=== PATIENT | female | born 1950 | race American Indian/Alaskan Native ===

== ENCOUNTER 2017-01-20 12:10 | Emergency (ER) | payer MEDICARE ==
[2017-01-20 16:14] LABS: Hematocrit 32.5 % (30.3-42.9); Hemoglobin 10.1 gm/dl (10.1-14.3); Mean Corpuscular HGB Conc 31 % (30-34); Mean Corpuscular Hemoglobin 26 pg (28-32); Mean Corpuscular Volume 83 fl (79-97); Red Cell Distribution Width 18.3 % (13.2-15.2); White Blood Count 3.4 K/mm3 (4.5-11.0)
[2017-01-20 16:19] LABS: INR 1.33 (0.87-1.13)
[2017-01-20 16:22] LABS: Alanine Aminotransferase 9 units/L (7-56); Albumin 4.2 g/dL (3.9-5); Albumin/Globulin Ratio 1.4 %; Alkaline Phosphatase 85 units/L (35-129); Anion Gap 23 mmol/L; Blood Urea Nitrogen 12 mg/dL (7-17); Calcium 9.3 mg/dL (8.4-10.2); Carbon Dioxide 29 mmol/L (22-30); Chloride 101.4 mmol/L (98-107); Glucose 77 mg/dL (65-100); Potassium 3.9 mmol/L (3.6-5.0); Sodium 149 mmol/L (137-145); Total Protein 7.1 g/dL (6.3-8.2)
[2017-01-20 16:25] LABS: Partial Thromboplastin Time 90.6 Sec. (24.2-36.6)
[2017-01-20 16:33] LABS: Bilirubin,Direct < 0.2 mg/dL (0-0.2); Bilirubin,Indirect 0.4 mg/dL
[2017-01-20 17:19] LABS: Anisocytosis 1+; Basophils % (Manual) 0 % (0.0-1.8); Blastocytes % (Manual) 0 %; Ovalocytes 1+
[2017-01-20 17:21] LABS: Basophilic Stippling Few; Hypochromasia 1+; Large Platelets Few; Poikilocytosis Few; Polychromasia Few
[2017-01-20 17:22] LABS: Diff Status Complete; Platelet Count 87 K/mm3 (140-440); Platelet Estimate Appears Decreased
--- NOTE | 2017-01-20 17:48 | Emergency Department Report ---
ED General Adult HPI - General Chief complaint: Medical Clearance Stated complaint: UNABLE TO STOP BLEEDING Time Seen by Provider: 01/20/17 13:28 Source: patient Mode of arrival: Stretcher Limitations: No Limitations - History of Present Illness Initial comments: The patient had bleeding from the AV fistula right of her left arm at dialysis today. EMS states that dialysis was unable to stop bleeding. They placed a dressing and a cling and the patient was transported to the emergency department. Apparently the bleeding stopped and this was effective. Patient is currently taking Eloquis and aspirin. She states he's not had any excessive bleeding during dialysis prior. She's been on dialysis for 8 years. -: Sudden Severity scale (0 -10): 0 - Related Data Previous Rx's Medication Instructions Recorded Last Taken Type ALBUTEROL Inhaler [ProAir HFA 2 puff IH QID PRN #1 inhalation 08/05/14 Unknown Rx Inhaler] Apixaban [Eliquis] 5 mg PO BID #60 tablet 01/20/17 Unknown Rx Allergies Allergy/AdvReac Type Severity Reaction Status Date / Time Penicillins Allergy shortness Verified 08/05/14 10:58 of breath and wheezing povidone-iodine Allergy itch and Verified 08/05/14 10:58 [From Betadine] rash soap [From Betadine] Allergy itch and Verified 08/05/14 10:58 rash ED Review of Systems ROS: Stated complaint: UNABLE TO STOP BLEEDING Other details as noted in HPI Constitutional: denies: chills, fever Eyes: denies: eye pain, eye discharge, vision change ENT: denies: ear pain, throat pain Respiratory: denies: cough, shortness of breath, wheezing Cardiovascular: denies: chest pain, palpitations Endocrine: no symptoms reported Gastrointestinal: denies: abdominal pain, nausea, diarrhea Genitourinary: denies: urgency, dysuria, discharge Musculoskeletal: denies: back pain, joint swelling, arthralgia Skin: denies: rash, lesions Neurological: denies: headache, weakness, paresthesias Psychiatric: denies: anxiety, depression Hematological/Lymphatic: as per HPI ED Past Medical Hx - Past Medical History Hx Hypertension: Yes Hx GERD: Yes Hx Renal Disease: Yes Additional medical history: CAD - Surgical History Hx Coronary Stent: Yes (x 2) Additional Surgical History: graft left arm. right breast lumpectomy - Social History Smoking Status: Never Smoker Substance Use Type: None - Medications Home Medications: Home Medications Medication Instructions Recorded Confirmed Last Taken Type ALBUTEROL Inhaler [ProAir HFA 2 puff IH QID PRN #1 inhalation 08/05/14 Unknown Rx Inhaler] Apixaban [Eliquis] 5 mg PO BID #60 tablet 01/20/17 Unknown Rx ED Physical Exam - General Limitations: No Limitations General appearance: alert, in no apparent distress - Head Head exam: Present: atraumatic, normocephalic - Eye Eye exam: Present: normal appearance. Absent: scleral icterus - ENT ENT exam: Present: mucous membranes moist - Neck Neck exam: Present: normal inspection - Respiratory Respiratory exam: Present: normal lung sounds bilaterally. Absent: respiratory distress - Cardiovascular Cardiovascular Exam: Present: regular rate, normal rhythm. Absent: systolic murmur, diastolic murmur, rubs, gallop - GI/Abdominal GI/Abdominal exam: Present: soft, normal bowel sounds. Absent: distended, tenderness, guarding, rebound - Extremities Exam Extremities exam: Present: other (AV fistula's functional with good thrill. There is no bleeding. There is a dry gauze dressing. ) - Back Exam Back exam: Present: normal inspection - Neurological Exam Neurological exam: Present: alert, oriented X3, CN II-XII intact. Absent: motor sensory deficit - Psychiatric Psychiatric exam: Present: normal affect, normal mood - Skin Skin exam: Present: warm, dry, intact, normal color. Absent: rash ED Course Vital Signs 01/20/17 01/20/17 01/20/17 13:22 13:39 13:44 Temperature 98.8 F 98.8 F Pulse Rate 81 81 Respiratory 20 20 Rate Blood Pressure 168/82 Blood Pressure 168/82 [Right] O2 Sat by Pulse 99 99 99 Oximetry - Reevaluation(s) Reevaluation #1: No additional bleeding. 01/20/17 17:46 Reevaluation #2: The patient was found to be thrombocytopenic. She will be taken off her aspirin. She will be moved down to the lower dose of Eloquis. I will discuss follow-up with her. 01/20/17 17:47 Reevaluation #3: Patient remains comfortable without complaints. She states that she had a problem with one of her blood cells involved with clotting before. I suspect this was thrombocytopenia. I'm going to take her off aspirin. I've advised her to avoid is states. I think at this point we can reduce her Eloquis to 5 mg twice a day. She will follow-up with her burrer hand. 01/20/17 17:54 ED Medical Decision Making - Lab Data Result diagrams: 01/20/17 15:15 01/20/17 15:15 Laboratory Results - last 24 hr 01/20/17 01/20/17 01/20/17 15:15 15:15 15:15 WBC 3.4 L RBC 3.90 Hgb 10.1 Hct 32.5 MCV 83 MCH 26 L MCHC 31 RDW 18.3 H Plt Count 87 L Robeson % (Auto) Cloth Colorer Add Manual Diff Complete Total Counted 100 Seg Neuts % (Manual) 55.0 Band Neutrophils % 2.0 Lymphocytes % (Manual) 22.0 Reactive Lymphs % (Man) 1.0 Monocytes % (Manual) 14.0 H Eosinophils % (Manual) 6.0 H Basophils % (Manual) 0 Metamyelocytes % 0 Myelocytes % 0 Promyelocytes % 0 Blast Cells % 0 Nucleated RBC % Not Reportable Seg Neutrophils # Man 1.9 Band Neutrophils # 0.1 Lymphocytes # (Manual) 0.7 L Abs React Lymphs (Man) 0.0 Monocytes # (Manual) 0.5 Eosinophils # (Manual) 0.2 Basophils # (Manual) 0.0 Metamyelocytes # 0.0 Myelocytes # 0.0 Promyelocytes # 0.0 Blast Cells # 0.0 WBC Morphology Not Reportable Hypersegmented Neuts Not Reportable Hyposegmented Neuts Not Reportable Hypogranular Neuts Not Reportable Smudge Cells Not Reportable Toxic Granulation Not Reportable Toxic Vacuolation Not Reportable Dohle Bodies Not Reportable Pelger-Huet Anomaly Not Reportable Miguel Rods Not Reportable Platelet Estimate Appears decreased Clumped Platelets Not Reportable Plt Clumps, EDTA Not Reportable Large Platelets Few Giant Platelets Not Reportable Platelet Satelliting Not Reportable Plt Morphology Comment Not Reportable RBC Morphology Not Reportable Dimorphic RBCs Not Reportable Polychromasia Few Hypochromasia 1+ Poikilocytosis Few Basophilic Stippling Few Anisocytosis 1+ Microcytosis Not Reportable Macrocytosis Not Reportable Spherocytes Not Reportable Pappenheimer Bodies Not Reportable Sickle Cells Not Reportable Target Cells Not Reportable Tear Drop Cells Not Reportable Ovalocytes 1+ Helmet Cells Not Reportable Hernandez-Lester Bodies Not Reportable Langley Rings Not Reportable Bartolome Cells Not Reportable Bite Cells Not Reportable Crenated Cell Not Reportable Elliptocytes Not Reportable Acanthocytes (Spur) Not Reportable Rouleaux Not Reportable Hemoglobin C Crystals Not Reportable Schistocytes Not Reportable Malaria parasites Not Reportable Filiberto Bodies Not Reportable Hem Pathologist Commnt No PT 16.4 H INR 1.33 H APTT 90.6 H* Sodium 149 H Potassium 3.9 Chloride 101.4 Carbon Dioxide 29 Anion Gap 23 BUN 12 Creatinine 4.6 H Estimated GFR 12 BUN/Creatinine Ratio 2.60 Glucose 77 Calcium 9.3 Total Bilirubin 0.60 Direct Bilirubin < 0.2 Indirect Bilirubin 0.4 AST 21 ALT 9 Alkaline Phosphatase 85 NT-Pro-B Natriuret Pep 18038 H Total Protein 7.1 Albumin 4.2 Albumin/Globulin Ratio 1.4 Blood Type Antibody Screen ALEX Antibody Screen 01/20/17 15:19 WBC RBC Hgb Hct MCV MCH MCHC RDW Plt Count Robeson % (Auto) Add Manual Diff Total Counted Seg Neuts % (Manual) Band Neutrophils % Lymphocytes % (Manual) Reactive Lymphs % (Man) Monocytes % (Manual) Eosinophils % (Manual) Basophils % (Manual) Metamyelocytes % Myelocytes % Promyelocytes % Blast Cells % Nucleated RBC % Seg Neutrophils # Man Band Neutrophils # Lymphocytes # (Manual) Abs React Lymphs (Man) Monocytes # (Manual) Eosinophils # (Manual) Basophils # (Manual) Metamyelocytes # Myelocytes # Promyelocytes # Blast Cells # WBC Morphology Hypersegmented Neuts Hyposegmented Neuts Hypogranular Neuts Smudge Cells Toxic Granulation Toxic Vacuolation Dohle Bodies Pelger-Huet Anomaly Miguel Rods Platelet Estimate Clumped Platelets Plt Clumps, EDTA Large Platelets Giant Platelets Platelet Satelliting Plt Morphology Comment RBC Morphology Dimorphic RBCs Polychromasia Hypochromasia Poikilocytosis Basophilic Stippling Anisocytosis Microcytosis Macrocytosis Spherocytes Pappenheimer Bodies Sickle Cells Target Cells Tear Drop Cells Ovalocytes Helmet Cells Hernandez-Lester Bodies Langley Rings Merlin Cells Bite Cells Crenated Cell Elliptocytes Acanthocytes (Spur) Rouleaux Hemoglobin C Crystals Schistocytes Malaria parasites Filiberto Bodies Hem Pathologist Commnt PT INR APTT Sodium Potassium Chloride Carbon Dioxide Anion Gap BUN Creatinine Estimated GFR BUN/Creatinine Ratio Glucose Calcium Total Bilirubin Direct Bilirubin Indirect Bilirubin AST ALT Alkaline Phosphatase NT-Pro-B Natriuret Pep Total Protein Albumin Albumin/Globulin Ratio Blood Type B POSITIVE Antibody Screen TNR ALEX Antibody Screen Negative Critical care attestation.: If time is entered above; I have spent that time in minutes in the direct care of this critically ill patient, excluding procedure time. ED Disposition Clinical Impression: Thrombocytopenia Hemorrhage of arteriovenous fistula Qualifiers: Encounter type: initial encounter Qualified Code(s): T82.838A - Hemorrhage due to vascular prosthetic devices, implants and grafts, initial encounter Disposition: DISCHARGED TO HOME OR SELFCARE Is pt being admited?: No Does the pt Need Aspirin: No Condition: Stable Instructions: Thrombocytopenia (ED) Additional Instructions: Avoid arthritis medicine. Stop aspirin. Decrease Eloquis 25 mg twice a day. See your burrer hand early next week for follow-up and a repeat platelet count. Prescriptions: Apixaban [Eliquis] 5 mg PO BID #60 tablet Referrals: SILVA SWEET MD [Primary Care Provider] - 3-5 Days usual, burrer hand [Other] - 2-3 Days Time of Disposition: 17:56
[2017-01-20 18:44] VITALS: BP 168/78
== END 2017-01-20 18:45 | disposition home or self-care (01) ==
LOC: ED 12:10
DX: T82.838A Hemorrhage due to vascular prosthetic devices, implants and grafts, initial encounter (principal); I10 Essential (primary) hypertension; K21.9 Gastro-esophageal reflux disease without esophagitis; I25.10 Atherosclerotic heart disease of native coronary artery without angina pectoris; Z90.89 Acquired absence of other organs; Z88.0 Allergy status to penicillin; Z88.8 Allergy status to other drugs, medicaments and biological substances; Y83.8 Other surgical procedures as the cause of abnormal reaction of the patient, or of later complication, without mention of misadventure at the time of the procedure; Y92.89 Other specified places as the place of occurrence of the external cause
CPT/HCPCS: 36415; 80048; 80074; 83880; 85007; 85025; 85610; 85730; 86850; 86900; 86901; 99283